=== PATIENT | female | born 1955 | race Caucasian/White ===

== ENCOUNTER 2022-05-14 20:33 | Inpatient (IN) | payer OTHER ==
[2022-05-14] MEDS ORDERED: Calcium Carbonate 500 MG ChewTAB PO PRN (21:44)
[2022-05-14] MEDS ORDERED: Acetaminophen 325 MG TAB PO PRN (21:44)
[2022-05-14] MEDS ORDERED: Vancomycin 1.5 GRAM/300 ML BAG IVPB SCH (22:00)
[2022-05-14] MEDS ORDERED: Meropenem 500 MG in Sodium Chloride 0.9% 100 ML IVPB SCH (22:00)
[2022-05-14 22:11] VITALS: BMI 65.8
[2022-05-14] MEDS ORDERED: Melatonin 3 MG TAB PO PRN (22:12)
[2022-05-14] MEDS ORDERED: traZODone HCl 50 MG TAB PO PRN (22:13)
[2022-05-14] MEDS ORDERED: Dextrose 50% Abboject 50 ML SYRINGE SLOW IVP PRN (22:15)
[2022-05-14] MEDS ORDERED: HumaLOG 300 UNITS/3 ML VIAL SC PRN (22:15)
[2022-05-14] MEDS ORDERED: Dextrose 5% in Water 1,000 ML IV PRN (22:15)
[2022-05-14] MEDS ORDERED: VANCOMYCIN 2 GRAM/400 ML BAG 2 GM in Premix Bag 1 BAG IVPB SCH (22:45)
[2022-05-14] MEDS ORDERED: Vancomycin 1 GM in Premix Bag 1 BAG IVPB PRN (22:50)
[2022-05-14] MEDS ORDERED: Nicotine 14 MG PATCH TD SCH (23:00)
[2022-05-14] MEDS ORDERED: Meropenem 1 GM in Sodium Chloride 0.9% 100 ML IVPB SCH (23:00)
[2022-05-14] MEDS ORDERED: FLU VACC QS2022-23(65YR UP)/PF 240 MCG/0.7 ML SYRINGE IM ONE (23:59)
[2022-05-15] MEDS ORDERED: Albuterol Sulfate 2.5 mg/3 ml Neb NEB PRN (04:01)
[2022-05-15] MEDS ORDERED: Meropenem 1 GM in Sodium Chloride 0.9% 100 ML IVPB SCH ×2 (04:15→12:00)
[2022-05-15 05:39] LABS: Hemoglobin 8.7 g/dL (12.0-15.5); Mean Corpuscular HGB CONC 30.2 g/dL (32.0-36.0); Mean Corpuscular Hemoglobin 28.6 pg (27.0-33.0); Mean Corpuscular Volume 94.7 fl (81.6-98.3); Mean Platelet Volume 9.9 fl (7.4-10.4); Platelet Count 357 10x3/uL (150-450); RBC Distribution Width 14.8 % (11.5-14.5); Red Blood Cell (RBC) Count 3.04 10x6/uL (3.90-5.03); White Blood Cell (WBC) Count 9.7 10x3/uL (3.5-10.5)
[2022-05-15 05:51] LABS: Anion Gap 17 mmol/L (10-20); BUN (Urea Nitrogen) 29 mg/dL (9.8-20.1); Calc. Creatinine Clearance 60 mL/min (70-130); Calcium 8.6 mg/dL (7.8-10.44); Carbon Dioxide 24 mmol/L (23-31); Chloride 105 mmol/L (98-107); Estimated GFR 21; Glucose 74 mg/dL (80-115); Magnesium 1.5 mg/dL (1.6-2.6); Potassium 3.9 mmol/L (3.5-5.1); Sodium 142 mmol/L (136-145)
[2022-05-15 06:25] LABS: MDiff Complete? YES; Platelet Morphology Comment Appears Adequate
[2022-05-15 06:29] LABS: Band 4 % (5-11); Eosinophils 1 % (0-10); Lymphocytes 10 % (21-51); Metamyelocyte 1 % (0-0); Monocytes 16 % (0-10); Neutrophil 66 % (42-75)
[2022-05-15] MEDS ORDERED: Mometasone/Formoterol 200/5 60 PUFF INH SCH (06:30)
[2022-05-15 06:37] LABS: Legionella Urinary Ag Negative (Negative); Strep pneumo Urine Ag NEGATIVE (NEGATIVE)
[2022-05-15] MEDS ORDERED: predniSONE 5 MG TAB PO SCH (08:00)
[2022-05-15] MEDS ORDERED: Meropenem 500 MG in Sodium Chloride 0.9% 100 ML IVPB SCH (08:00)
[2022-05-15] MEDS ORDERED: Furosemide 40 MG/4 ML VIAL SLOW IVP SCH ×2 (08:15→14:00)
[2022-05-15 08:44] LABS: Actual Bicarbonate (HCO3a) 23.5 mEq/L (22-28); Base Excess (BEa) -2.4 mEq/L (-2.0 to +3.0); Calcium, Ionized (arterial) 1.19 mmol/L (1.12-1.30); Carboxyhemoglobin (COHb) 0.2 gm% (0.0-3.0); Hemoglobin (Hb) 11.2 g/dL (12.0-16.0); O2 Tension (PaO2), arterial 63.4 mmHg (> 80.0); Potassium - ABG Lab 3.9 mmol/L (3.70-5.30); Puncture Site RRA; pH, Arterial 7.34 (7.35-7.45)
[2022-05-15] MEDS ORDERED: Cholecalciferol 1,000 UNITS (25 MCG) TAB PO SCH (09:00)
[2022-05-15] MEDS ORDERED: methylPREDNISolone Sod Succ/PF 125 MG/2 ML VIAL IVP SCH (09:00)
[2022-05-15] MEDS ORDERED: guaiFENesin ER 600 MG TAB PO SCH (09:00)
[2022-05-15] MEDS ORDERED: Aggrenox 200-25mg CAP PO SCH (09:00)
[2022-05-15] MEDS ORDERED: Folic Acid 1 MG TAB PO SCH (09:00)
[2022-05-15] MEDS ORDERED: Escitalopram Oxalate 20 mg Tablet PO SCH (09:00)
[2022-05-15] MEDS ORDERED: Enoxaparin Sodium 30 MG/0.3 ML SYRINGE SC SCH (09:00)
[2022-05-15] MEDS ORDERED: Ascorbic Acid 500 mg Chewable Tablet PO SCH (09:00)
[2022-05-15 09:40] LABS: ALT (SGPT) 18 U/L (8-55); AST (SGOT) 16 U/L (5-34); Albumin 2.8 g/dL (3.4-4.8); Alkaline Phosphatase 307 U/L (40-110); Bilirubin, Direct 0.2 mg/dL (0.1-0.3); Bilirubin, Total 0.3 mg/dL (0.2-1.2); Protein, Total 7.2 g/dL (5.8-8.1)
[2022-05-15] MEDS ORDERED: VANCOMYCIN 1.25 GM/250 ML BAG IVPB SCH (10:00)
[2022-05-15 12:54] LABS: Hemoglobin A1c 5.4 % (4.0-6.0)
[2022-05-15 16:42] VITALS: BP 126/74; TEMP 97.7
[2022-05-15] MEDS ORDERED: Montelukast Sodium 10 mg Tablet PO SCH (21:00)
[2022-05-15] MEDS ORDERED: Amlodipine 10 MG TAB PO SCH (21:00)
[2022-05-15] MEDS ORDERED: Atorvastatin Calcium 40 MG TAB PO SCH ×2 (21:00)
== END 2022-05-15 17:00 | disposition short-term general hospital (02) | DRG 177 ==
LOC: CSHTELE 20:33 → CSHICU 05-15 09:43
PROVIDERS: ADMIT Family Medicine; ATTEND Family Medicine
DX: J86.9 Pyothorax without fistula (principal); I50.33 Acute on chronic diastolic (congestive) heart failure; J96.01 Acute respiratory failure with hypoxia; I13.0 Hypertensive heart and chronic kidney disease with heart failure and stage 1 through stage 4 chronic kidney disease, or unspecified chronic kidney disease; E46 Unspecified protein-calorie malnutrition; Z68.44 Body mass index [BMI] 60.0-69.9, adult; N18.4 Chronic kidney disease, stage 4 (severe); Z86.73 Personal history of transient ischemic attack (TIA), and cerebral infarction without residual deficits; I35.0 Nonrheumatic aortic (valve) stenosis; D63.1 Anemia in chronic kidney disease; F17.210 Nicotine dependence, cigarettes, uncomplicated; I73.9 Peripheral vascular disease, unspecified; E78.5 Hyperlipidemia, unspecified; Z86.16 Personal history of COVID-19; Z88.2 Allergy status to sulfonamides; Z88.1 Allergy status to other antibiotic agents; Z88.8 Allergy status to other drugs, medicaments and biological substances; Z79.899 Other long term (current) drug therapy; Z79.82 Long term (current) use of aspirin; Z79.52 Long term (current) use of systemic steroids; Z90.49 Acquired absence of other specified parts of digestive tract; Z90.710 Acquired absence of both cervix and uterus; Z82.49 Family history of ischemic heart disease and other diseases of the circulatory system
CPT/HCPCS: 36415; 36416; 36600; 71250; 80048; 80076; 82805; 83036; 83735; 84145; 84443; 85025; 86480; 87040; 87070; 87205; 87449; 87633; 87899; 93005; 93010; 93306; 94640; 94760; J1650; J1940; J2185; J2930; J3370; J3490; J7512; J7611; J7620; J7999